=== PATIENT | female | born 1970 | race Caucasian/White ===

== ENCOUNTER 2019-09-11 | Emergency (ER) | payer SELFPAY | END 2019-09-11 11:11 | disposition home or self-care (01) | DX: J10.1 Influenza due to other identified influenza virus with other respiratory manifestations (principal); R06.01 Orthopnea; I25.2 Old myocardial infarction; K21.9 Gastro-esophageal reflux disease without esophagitis; Z86.73 Personal history of transient ischemic attack (TIA), and cerebral infarction without residual deficits; Z85.3 Personal history of malignant neoplasm of breast; Z85.41 Personal history of malignant neoplasm of cervix uteri; Z88.6 Allergy status to analgesic agent; Z88.8 Allergy status to other drugs, medicaments and biological substances | CPT/HCPCS: 71046; 87502; J1885 ==

== ENCOUNTER 2019-09-15 | Emergency (ER) | payer SELFPAY | END 2019-09-15 16:26 | disposition home or self-care (01) ==